=== PATIENT | male | born 1990 | race African-American/Black ===

== ENCOUNTER 2018-11-25 23:50 | Emergency (ER) | payer OTHER ==
[2018-11-26] MEDS ORDERED: LIDOCAINE 1% MPF 5 ML VIAL ONE (00:23)
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
[2018-11-26] MEDS ORDERED: TETANUS & DIPHTHERIA TOX,ADULT 0.5 ML VIAL ONE (00:52)
[2018-11-26] MEDS ORDERED: CEPHALEXIN 250 MG CAP ONE (01:01)
== END 2018-11-26 01:01 | disposition home or self-care (01) ==
LOC: ER 23:50
PROC: 0CQ0XZZ Repair Upper Lip, External Approach (ICD-10-PCS; principal; 2018-11-25)
DX: S01.511A Laceration without foreign body of lip, initial encounter (principal); I10 Essential (primary) hypertension; Z72.0 Tobacco use; Z23 Encounter for immunization
CPT/HCPCS: 90471; 90714; 99284